=== PATIENT | male | born 1960 | race Caucasian/White ===

== ENCOUNTER 2019-11-06 03:59 | Observation (INO) | payer BC, MEDICARE ==
--- NOTE | 2019-11-06 04:29 | EDM.PDOC ---
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 also gives h/o [place]. pt states there is nothing wrong with him and lives with his mother who called the binding [employer] to bring him here for check-up. denies CP/SOB/CELIS. pt states he has [place] and his brain is deteriorating. pt's situation was discussed with on-call [facility] html web developer Sheldon who is aware bill fairchild had made an appointment for an interview at the pt's residence today at 10am but she cannot do that in the hospital. mental health contacted will come to [facility] - Related Data Allergies Allergy/AdvReac Type Severity Reaction Status Date / Time No Known Allergies Allergy Verified 06/14/19 07:39 Home Meds: Home Meds Dexlansoprazole [Dexilant] 30 mg PO DAILY 06/14/19 [History] Megestrol Acetate 5 ml PO DAILY 06/14/19 [History] Mirtazapine 45 mg PO BEDTIME 06/14/19 [History] QUEtiapine Fumarate [Quetiapine Fumarate] 75 mg PO BEDTIME 06/14/19 [History] clonazePAM [Clonazepam] 1 mg PO DAILY PRN 06/14/19 [History] ARIPiprazole [Aripiprazole] 2 tab PO DAILY 11/06/19 [History] Past Medical History HEENT History: Reports: Impaired Vision, Other (See Below) Other HEENT History: WEARS CORRECTIVE LENS Cardiovascular History: Reports: None Respiratory History: Reports: None Gastrointestinal History: Reports: GERD Genitourinary History: Reports: None Musculoskeletal History: Reports: None Neurological History: Reports: Other (See Below) Other Neuro History: HUNINGTON DISEASE Psychiatric History: Reports: None Endocrine/Metabolic History: Reports: None Hematologic History: Reports: None Immunologic History: Reports: None Oncologic (Cancer) History: Reports: None Dermatologic History: Reports: None - Infectious Disease History Infectious Disease History: Reports: None - Past Surgical History Head Surgeries/Procedures: Reports: None HEENT Surgical History: Reports: Cataract Surgery Cardiovascular Surgical History: Reports: None Respiratory Surgical History: Reports: None GI Surgical History: Reports: None Male Surgical History: Reports: Vasectomy Endocrine Surgical History: Reports: None Neurological Surgical History: Reports: None Musculoskeletal Surgical History: Reports: None Oncologic Surgical History: Reports: None Dermatological Surgical History: Reports: None Social & Family History - Caffeine Use Caffeine Use: Other Caffeine Use: ABSTAINING FROM [place] DEW ED ROS GENERAL - Review of Systems Review Of Systems: Comprehensive ROS is negative, except as noted in HPI. - Physical Exam Exam: See Below Exam Limited By: Altered Mental Status General Appearance: Alert, WD/WN, No Apparent Distress (somewhat fidgety), Anxious, Other Eye Exam: Bilateral Eye: PERRL (pupils ER @ 4mm) Ears: Hearing Grossly Normal Throat/Mouth: Normal Voice, No Airway Compromise Head Exam: Atraumatic Neck: Non-Tender, Full Range of Motion Respiratory/Chest: No Respiratory Distress Cardiovascular: Regular Rate, Rhythm GI/Abdominal: Soft, Non-Tender Neuro Exam (Abbreviated): Alert, Normal Gait, No Motor/Sensory Deficits, Other ( answers appropriately). No: Confused, Disoriented, Slow to Respond, Abnormal Gait, Sensory/Motor Deficit Psychiatric: Flat Affect Skin Exam: Warm, Dry, Normal Color Course - Vital Signs Last Recorded V/S: Last Vital Signs Temp 37.1 C 11/06/19 04:17 Pulse 120 H 11/06/19 04:17 Resp 16 11/06/19 04:17 BP 130/92 H 11/06/19 04:17 Pulse Ox 97 11/06/19 04:17 - Orders/Labs/Meds Labs: Laboratory Tests 11/06/19 11/06/19 11/06/19 Range/Units 04:15 04:15 04:15 WBC 10.2 H (5.0-10.0) 10^3/uL RBC 4.66 (4.6-6.2) 10^6/uL Hgb 14.7 (14.0-18.0) g/dL Hct 42.5 (40.0-54.0) % MCV 91.2 (80-100) fL MCH 31.5 (27.0-34.0) pg MCHC 34.6 (33.0-35.0) g/dL Plt Count 271 (150-450) 10^3/uL Neut % (Auto) 72.0 (42.2-75.2) % Lymph % (Auto) 17.7 L (20.5-50.1) % [place] % (Auto) 9.2 H (2-8) % Eos % (Auto) 0.9 L (1.0-3.0) % Baso % (Auto) 0.2 (0.0-1.0) % Sodium 141 (136-145) mmol/L Potassium 3.4 L (3.5-5.1) mmol/L Chloride 104 (98-107) mmol/L Carbon Dioxide 20 L (21-32) mmol/L Anion Gap 20.4 H (7-13) mEq/L BUN 31 H (7-18) mg/dL Creatinine 1.67 H (0.70-1.30) mg/dL Est Cr Clr Drug Dosing 48.53 mL/min Estimated GFR (MDRD) 43 BUN/Creatinine Ratio 18.6 (No establ ref range) Glucose 110 H (74-99) mg/dL Lactic Acid 1.9 (0.4-2.0) mmol/L Calcium 9.8 (8.5-10.1) mg/dL Total Bilirubin 0.8 (0.2-1.0) mg/dL AST 15 (15-37) U/L ALT 24 (16-63) U/L Alkaline Phosphatase 33 L (46-116) U/L Troponin I 0.017 (0.000-0.056) ng/mL Total Protein 7.9 (6.4-8.2) g/dL Albumin 4.8 (3.4-5.0) g/dL Globulin 3.1 Albumin/Globulin Ratio 1.5 Urine Color (YELLOW) Urine Appearance (CLEAR) Urine pH (5.0-9.0) Ur Specific [place] (1.005-1.030) Urine Protein (NEGATIVE) Urine Glucose (UA) (NEGATIVE) Urine Ketones (NEGATIVE) Urine Occult Blood (NEGATIVE) Urine Nitrite (NEGATIVE) Urine Bilirubin (NEGATIVE) Urine Urobilinogen (0.2-1.0) mg/dL Ur Leukocyte Esterase (NEGATIVE) Urine RBC /HPF Urine WBC (0-5/HPF) /HPF Ur Epithelial Cells (NOT SEEN) /HPF Urine Bacteria (0-FEW/HPF) /HPF Urine Mucus (NOT SEEN) /LPF Salicylates (2.8-20(Therapeutic)) mg/dL Urine Opiates Screen (NEGATIVE) Ur Oxycodone Screen (NEGATIVE) Urine Methadone Screen (NEGATIVE) Acetaminophen 0 L (10-30 (Therapeutic)) ug/mL Ur Barbiturates Screen (NEGATIVE) U Tricyclic Antidepress (NEGATIVE) Ur Phencyclidine Scrn (NEGATIVE) Ur Amphetamine Screen (NEGATIVE) U Methamphetamines Scrn (NEGATIVE) Urine MDMA Screen (NEGATIVE) U Benzodiazepines Scrn (NEGATIVE) Urine Cocaine Screen (NEGATIVE) U Marijuana (THC) Screen (NEGATIVE) Ethyl Alcohol < 3 (0) mg/dL 11/06/19 11/06/19 11/06/19 Range/Units 04:15 04:39 04:39 WBC (5.0-10.0) 10^3/uL RBC (4.6-6.2) 10^6/uL Hgb (14.0-18.0) g/dL Hct (40.0-54.0) % MCV (80-100) fL MCH (27.0-34.0) pg MCHC (33.0-35.0) g/dL Plt Count (150-450) 10^3/uL Neut % (Auto) (42.2-75.2) % Lymph % (Auto) (20.5-50.1) % [place] % (Auto) (2-8) % Eos % (Auto) (1.0-3.0) % Baso % (Auto) (0.0-1.0) % Sodium (136-145) mmol/L Potassium (3.5-5.1) mmol/L Chloride (98-107) mmol/L Carbon Dioxide (21-32) mmol/L Anion Gap (7-13) mEq/L BUN (7-18) mg/dL Creatinine (0.70-1.30) mg/dL Est Cr Clr Drug Dosing mL/min Estimated GFR (MDRD) BUN/Creatinine Ratio (No establ ref range) Glucose (74-99) mg/dL Lactic Acid (0.4-2.0) mmol/L Calcium (8.5-10.1) mg/dL Total Bilirubin (0.2-1.0) mg/dL AST (15-37) U/L ALT (16-63) U/L Alkaline Phosphatase (46-116) U/L Troponin I (0.000-0.056) ng/mL Total Protein (6.4-8.2) g/dL Albumin (3.4-5.0) g/dL Globulin Albumin/Globulin Ratio Urine Color Vero (YELLOW) Urine Appearance Slightly cloudy (CLEAR) Urine pH 5.5 (5.0-9.0) Ur Specific [place] >= 1.030 (1.005-1.030) Urine Protein 30 H (NEGATIVE) Urine Glucose (UA) Negative (NEGATIVE) Urine Ketones 15 H (NEGATIVE) Urine Occult Blood Negative (NEGATIVE) Urine Nitrite Negative (NEGATIVE) Urine Bilirubin Moderate H (NEGATIVE) Urine Urobilinogen 1.0 (0.2-1.0) mg/dL Ur Leukocyte Esterase Negative (NEGATIVE) Urine RBC 0-5 /HPF Urine WBC 5-10 H (0-5/HPF) /HPF Ur Epithelial Cells Moderate H (NOT SEEN) /HPF Urine Bacteria Many H (0-FEW/HPF) /HPF Urine Mucus Many H (NOT SEEN) /LPF Salicylates < 2.8 L (2.8-20(Therapeutic)) mg/dL Urine Opiates Screen Negative (NEGATIVE) Ur Oxycodone Screen Negative (NEGATIVE) Urine Methadone Screen Negative (NEGATIVE) Acetaminophen (10-30 (Therapeutic)) ug/mL Ur Barbiturates Screen Negative (NEGATIVE) U Tricyclic Antidepress Positive H (NEGATIVE) Ur Phencyclidine Scrn Negative (NEGATIVE) Ur Amphetamine Screen Negative (NEGATIVE) U Methamphetamines Scrn Negative (NEGATIVE) Urine MDMA Screen Negative (NEGATIVE) U Benzodiazepines Scrn Positive H (NEGATIVE) Urine Cocaine Screen Negative (NEGATIVE) U Marijuana (THC) Screen Negative (NEGATIVE) Ethyl Alcohol (0) mg/dL - Re-Assessments/Exams Free Text/Narrative Re-Assessment/Exam: 11/06/19 05:[address] Alvarez who kindly admitted pt to observation. Departure - Departure Time of Disposition: 06:00 Disposition: Refer to Observation Condition: Good Clinical Impression: Timo disease, Neurodegenerative cognitive impairment Altered mental state Qualifiers: Altered mental status type: unspecified Qualified Code(s): R41.82 - Altered mental status, unspecified - Discharge Information Forms: ED Department Discharge Sepsis Event Note - Evaluation Sepsis Screening Result: No Definite Risk - Focused Exam Vital Signs: Vital Signs Temp Pulse Resp BP Pulse Ox 11/06/19 04:17 37.1 C 120 H 16 130/92 H 97 Date Exam was Performed: 11/06/19 Time Exam was Performed: 05:43
[2019-11-06 04:44] LABS: ANION GAP 20.4 mEq/L (7-13); CHLORIDE,CL 104 mmol/L (98-107); SODIUM,NA 141 mmol/L (136-145)
[2019-11-06 04:46] LABS: ACETAMINOPHEN 0 ug/mL (10-30 (Therapeutic))
[2019-11-06] MEDS ORDERED: LORazepam 2 MG/ML SDV IVPUSH ONE ×2 (05:50→16:54)
[2019-11-06] MEDS ORDERED: Acetaminophen 325 MG Tab PO PRN (08:16)
[2019-11-06] MEDS ORDERED: QUEtiapine 25 MG Tab PO ONE (08:30)
[2019-11-06] MEDS: Nicotine 14 MG/24 Hr Patch TRDERM SCH (08:52)
--- NOTE | 2019-11-06 08:52 | PCM.HP ---
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 The patient has significant anxiety and depression. Has been taking Remeron and Seroquel at night. Recently Abilify was added. There is history of paranoid thoughts about having his phone hacked. He lives with his elderly mother. Due to decreasing weight, increasing behavioral problems the patient has been evaluated by hospice. Plan was home hospice care. He was brought into the emergency room after police was called by the mother that he is up and walking all-over restless. - Related Data Allergies/Adverse Reactions: Allergies Allergy/AdvReac Type Severity Reaction Status Date / Time No Known Allergies Allergy Verified 11/06/19 06:21 Home Medications: Home Meds Dexlansoprazole [Dexilant] 30 mg PO DAILY 06/14/19 [History] Megestrol Acetate 5 ml PO DAILY 06/14/19 [History] Mirtazapine 45 mg PO BEDTIME 06/14/19 [History] QUEtiapine Fumarate [Quetiapine Fumarate] 75 mg PO BEDTIME 06/14/19 [History] clonazePAM [Clonazepam] 1 mg PO DAILY PRN 06/14/19 [History] ARIPiprazole [Aripiprazole] 2 tab PO DAILY 11/06/19 [History] Past Medical History HEENT History: Reports: Impaired Vision, Other (See Below) Other HEENT History: WEARS CORRECTIVE LENS Cardiovascular History: Reports: None Respiratory History: Reports: None Gastrointestinal History: Reports: GERD Genitourinary History: Reports: None Musculoskeletal History: Reports: None Neurological History: Reports: Other (See Below) Other Neuro History: [place] DISEASE Psychiatric History: Reports: None Endocrine/Metabolic History: Reports: None Hematologic History: Reports: None Immunologic History: Reports: None Oncologic (Cancer) History: Reports: None Dermatologic History: Reports: None - Infectious Disease History Infectious Disease History: Reports: None - Past Surgical History Head Surgeries/Procedures: Reports: None HEENT Surgical History: Reports: Cataract Surgery Cardiovascular Surgical History: Reports: None Respiratory Surgical History: Reports: None GI Surgical History: Reports: None Male Surgical History: Reports: Vasectomy Endocrine Surgical History: Reports: None Neurological Surgical History: Reports: None Musculoskeletal Surgical History: Reports: None Oncologic Surgical History: Reports: None Dermatological Surgical History: Reports: None Social & Family History - Family History Family Medical History: Noncontributory - Tobacco Use Smoking Status *Q: Current Every Day Smoker Years of Tobacco use: 38 Packs/Tins Daily: 0.5 Used Tobacco, but Quit: No Second Hand Smoke Exposure: No - Caffeine Use Caffeine Use: Reports: None Other Caffeine Use: ABSTAINING FROM [place] DEW - Recreational Drug Use Recreational Drug Use: No H&P Review of Systems - Review of Systems: Review Of Systems: See Below General: Denies: Fever, Chills Pulmonary: Denies: Shortness of Breath Cardiovascular: Denies: Chest Pain, Edema Gastrointestinal: Denies: Nausea Psychiatric: Reports: Anxiety, Agitation. Denies: Confusion Neurological: Denies: Seizure Exam - Exam Exam: See Below - Vital Signs Vital Signs: Last Vital Signs Temp 98.5 F 11/06/19 06:18 Pulse 86 11/06/19 06:18 Resp 16 11/06/19 06:18 BP 129/94 H 11/06/19 06:18 Pulse Ox 100 11/06/19 06:18 Weight: 146 lb 4.8 oz - Exam Quality Assessment: Supplemental Oxygen General: Alert, Oriented Lungs: Clear to Auscultation, Normal Respiratory Effort Cardiovascular: Regular Rate, Regular Rhythm Extremities: No Pedal Edema Skin: Warm, Dry Neuro Extensive - Mental Status: Alert, Oriented x3 Psychiatric: Anxious, Agitated. No: Hallucinations - Patient Data Lab Results Last 24 hrs: Laboratory Results - last 24 hr 11/06/19 11/06/19 11/06/19 Range/Units 04:15 04:15 04:15 WBC 10.2 H (5.0-10.0) 10^3/uL RBC 4.66 (4.6-6.2) 10^6/uL Hgb 14.7 (14.0-18.0) g/dL Hct 42.5 (40.0-54.0) % MCV 91.2 (80-100) fL MCH 31.5 (27.0-34.0) pg MCHC 34.6 (33.0-35.0) g/dL Plt Count 271 (150-450) 10^3/uL Neut % (Auto) 72.0 (42.2-75.2) % Lymph % (Auto) 17.7 L (20.5-50.1) % [place] % (Auto) 9.2 H (2-8) % Eos % (Auto) 0.9 L (1.0-3.0) % Baso % (Auto) 0.2 (0.0-1.0) % Sodium 141 (136-145) mmol/L Potassium 3.4 L (3.5-5.1) mmol/L Chloride 104 (98-107) mmol/L Carbon Dioxide 20 L (21-32) mmol/L Anion Gap 20.4 H (7-13) mEq/L BUN 31 H (7-18) mg/dL Creatinine 1.67 H (0.70-1.30) mg/dL Est Cr Clr Drug Dosing 48.53 mL/min Estimated GFR (MDRD) 43 BUN/Creatinine Ratio 18.6 (No establ ref range) Glucose 110 H (74-99) mg/dL Lactic Acid 1.9 (0.4-2.0) mmol/L Calcium 9.8 (8.5-10.1) mg/dL Total Bilirubin 0.8 (0.2-1.0) mg/dL AST 15 (15-37) U/L ALT 24 (16-63) U/L Alkaline Phosphatase 33 L (46-116) U/L Troponin I 0.017 (0.000-0.056) ng/mL Total Protein 7.9 (6.4-8.2) g/dL Albumin 4.8 (3.4-5.0) g/dL Globulin 3.1 Albumin/Globulin Ratio 1.5 Urine Color (YELLOW) Urine Appearance (CLEAR) Urine pH (5.0-9.0) Ur Specific [place] (1.005-1.030) Urine Protein (NEGATIVE) Urine Glucose (UA) (NEGATIVE) Urine Ketones (NEGATIVE) Urine Occult Blood (NEGATIVE) Urine Nitrite (NEGATIVE) Urine Bilirubin (NEGATIVE) Urine Urobilinogen (0.2-1.0) mg/dL Ur Leukocyte Esterase (NEGATIVE) Urine RBC /HPF Urine WBC (0-5/HPF) /HPF Ur Epithelial Cells (NOT SEEN) /HPF Urine Bacteria (0-FEW/HPF) /HPF Urine Mucus (NOT SEEN) /LPF Salicylates (2.8-20(Therapeutic)) mg/dL Urine Opiates Screen (NEGATIVE) Ur Oxycodone Screen (NEGATIVE) Urine Methadone Screen (NEGATIVE) Acetaminophen 0 L (10-30 (Therapeutic)) ug/mL Ur Barbiturates Screen (NEGATIVE) U Tricyclic Antidepress (NEGATIVE) Ur Phencyclidine Scrn (NEGATIVE) Ur Amphetamine Screen (NEGATIVE) U Methamphetamines Scrn (NEGATIVE) Urine MDMA Screen (NEGATIVE) U Benzodiazepines Scrn (NEGATIVE) Urine Cocaine Screen (NEGATIVE) U Marijuana (THC) Screen (NEGATIVE) Ethyl Alcohol < 3 (0) mg/dL 11/06/19 11/06/19 11/06/19 Range/Units 04:15 04:39 04:39 WBC (5.0-10.0) 10^3/uL RBC (4.6-6.2) 10^6/uL Hgb (14.0-18.0) g/dL Hct (40.0-54.0) % MCV (80-100) fL MCH (27.0-34.0) pg MCHC (33.0-35.0) g/dL Plt Count (150-450) 10^3/uL Neut % (Auto) (42.2-75.2) % Lymph % (Auto) (20.5-50.1) % [place] % (Auto) (2-8) % Eos % (Auto) (1.0-3.0) % Baso % (Auto) (0.0-1.0) % Sodium (136-145) mmol/L Potassium (3.5-5.1) mmol/L Chloride (98-107) mmol/L Carbon Dioxide (21-32) mmol/L Anion Gap (7-13) mEq/L BUN (7-18) mg/dL Creatinine (0.70-1.30) mg/dL Est Cr Clr Drug Dosing mL/min Estimated GFR (MDRD) BUN/Creatinine Ratio (No establ ref range) Glucose (74-99) mg/dL Lactic Acid (0.4-2.0) mmol/L Calcium (8.5-10.1) mg/dL Total Bilirubin (0.2-1.0) mg/dL AST (15-37) U/L ALT (16-63) U/L Alkaline Phosphatase (46-116) U/L Troponin I (0.000-0.056) ng/mL Total Protein (6.4-8.2) g/dL Albumin (3.4-5.0) g/dL Globulin Albumin/Globulin Ratio Urine Color Vero (YELLOW) Urine Appearance Slightly cloudy (CLEAR) Urine pH 5.5 (5.0-9.0) Ur Specific [place] >= 1.030 (1.005-1.030) Urine Protein 30 H (NEGATIVE) Urine Glucose (UA) Negative (NEGATIVE) Urine Ketones 15 H (NEGATIVE) Urine Occult Blood Negative (NEGATIVE) Urine Nitrite Negative (NEGATIVE) Urine Bilirubin Moderate H (NEGATIVE) Urine Urobilinogen 1.0 (0.2-1.0) mg/dL Ur Leukocyte Esterase Negative (NEGATIVE) Urine RBC 0-5 /HPF Urine WBC 5-10 H (0-5/HPF) /HPF Ur Epithelial Cells Moderate H (NOT SEEN) /HPF Urine Bacteria Many H (0-FEW/HPF) /HPF Urine Mucus Many H (NOT SEEN) /LPF Salicylates < 2.8 L (2.8-20(Therapeutic)) mg/dL Urine Opiates Screen Negative (NEGATIVE) Ur Oxycodone Screen Negative (NEGATIVE) Urine Methadone Screen Negative (NEGATIVE) Acetaminophen (10-30 (Therapeutic)) ug/mL Ur Barbiturates Screen Negative (NEGATIVE) U Tricyclic Antidepress Positive H (NEGATIVE) Ur Phencyclidine Scrn Negative (NEGATIVE) Ur Amphetamine Screen Negative (NEGATIVE) U Methamphetamines Scrn Negative (NEGATIVE) Urine MDMA Screen Negative (NEGATIVE) U Benzodiazepines Scrn Positive H (NEGATIVE) Urine Cocaine Screen Negative (NEGATIVE) U Marijuana (THC) Screen Negative (NEGATIVE) Ethyl Alcohol (0) mg/dL Result Diagrams: 11/06/19 04:15 11/06/19 04:15 - Problem List (1) GERD (gastroesophageal reflux disease) SNOMED Code(s): 693368428 ICD Code: K21.9 - GASTRO-ESOPHAGEAL REFLUX DISEASE WITHOUT ESOPHAGITIS Status: Acute Current Visit: Yes (2) Agitation SNOMED Code(s): 826636380 ICD Code: R45.1 - RESTLESSNESS AND AGITATION Status: Acute Current Visit : Yes Problem List Initiated/Reviewed/Updated: Yes Orders Last 24hrs: Active Orders 24 hr Category Date Time Status Admission Diagnosis [ADT] Stat ADT 11/06/19 06:03 Ordered Admission Status [Patient Status] [ADT] Routine ADT 11/06/19 06:03 Active Oxygen Therapy [RC] PRN Care 11/06/19 08:16 Ordered Peripheral IV Care [RC] . DIRECTED Care 11/06/19 08:17 Ordered Up With Assistance [RC] ASDIRECTED Care 11/06/19 08:16 Ordered VTE/DVT Education [RC] PER UNIT ROUTINE Care 11/06/19 08:16 Ordered Vital Signs [RC] Q4H Care 11/06/19 08:16 Ordered Regular Diet [DIET] Diet 11/06/19 Lunch Ordered ARIPiprazole Med 11/06/19 09:00 Ordered 2 mg PO DAILY Acetaminophen [Tylenol] Med 11/06/19 08:16 Ordered 650 mg PO Q4H PRN Dexlansoprazole [Dexilant] Med 11/06/19 09:00 Ordered 60 mg PO BID Famotidine [Pepcid] Med 11/06/19 09:00 Ordered 20 mg PO DAILY Heparin Sodium Med 11/06/19 14:00 Ordered 5,000 units SUBCUT Q8HR LORazepam [Ativan] Med 11/06/19 08:12 Ordered 1 mg IVPUSH Q4H PRN Megestrol Acetate [Megestrol Acetate] Med 11/06/19 09:00 Ordered 5 ml PO DAILY Nicotine [Habitrol] Med 11/06/19 09:00 Ordered 14 mg TRDERM DAILY QUEtiapine Fumarate Med 11/06/19 21:00 Ordered 75 mg PO BEDTIME Sodium Chloride 0.9% [Saline Flush] Med 11/06/19 08:16 Ordered 10 ml FLUSH ASDIRECTED PRN clonazePAM [Clonazepam] Med 11/06/19 08:11 Ordered 1 mg PO Q8H PRN Peripheral IV Insertion Adult [OM.PC] Routine Oth 11/06/19 08:16 Ordered Saline Lock Insert [OM.PC] Routine Oth 11/06/19 08:16 Ordered Resuscitation Status Routine Resus Stat 11/06/19 08:16 Ordered Medication Orders Acetaminophen (Tylenol) 650 mg PO Q4H PRN PRN Reason: Pain (Mild 1-3)/fever Clonazepam (Klonopin) 1 mg PO Q8H PRN PRN Reason: anxiety Famotidine (Pepcid) 20 mg PO DAILY NISH Heparin Sodium (Porcine) (Heparin Sodium) 5,000 units SUBCUT Q8HR NISH Lorazepam (Ativan) 1 mg IVPUSH Q4H PRN PRN Reason: Agitation Nicotine (Habitrol) 14 mg TRDERM DAILY [facility] Non-Formulary Medication (Megestrol Acetate [Megestrol Acetate]) 5 ml PO DAILY NISH Aripiprazole 2 Mg (Own Med) 2 mg PO DAILY [facility] Non-Formulary Medication (Dexlansoprazole [Dexilant]) 60 mg PO BID NISH Quetiapine Fumarate (Seroquel) 75 mg PO BEDTIME NISH Sodium Chloride (Saline Flush) 10 ml FLUSH ASDIRECTED PRN PRN Reason: Keep Vein Open Assessment/Plan Comment:: Agitation, anxiety, hyperactivity give one dose of Seroquel now Continue evening Seroquel, mirtazapine Will use when necessary clonazepam po, IV Ativan d/w behavioral health - if continues to be agitated with above tx. consider psychiatric hospitallization History of Huntingtons disease History of memory loss Plan was home care and hospice evaluation Abnormal UA appears contaminant Mild hypokalemia We will replace Gastro-esophageal reflux disease Treat with famotidine, dexlansoprazole DVT prophylaxis with subcutaneous heparin
[2019-11-06] MEDS: DEXLANSOPRAZOLE 60 MG PO SCH (08:53)
[2019-11-06] MEDS ORDERED: ARIPIPRAZOLE PO SCH (09:00)
[2019-11-06] MEDS ORDERED: ARIPIPRAZOLE 2 MG PO SCH (09:00)
[2019-11-06] MEDS ORDERED: DEXLANSOPRAZOLE 30 MG PO SCH (09:00)
[2019-11-06] MEDS ORDERED: Famotidine 20 MG Tab PO SCH (09:00)
[2019-11-06] MEDS ORDERED: Potassium Chloride 10 MEQ Tab.ER PO ONE (09:04)
[2019-11-06] MEDS: LORazepam 2 MG/ML SDV IVPUSH PRN ×3 (09:40→20:19)
[2019-11-06] MEDS: ClonazePAM 0.5 MG Tab PO PRN ×2 (09:40→17:21)
[2019-11-06] MEDS: Sodium Chloride 0.9% 10 ML Syringe FLUSH PRN (09:41)
[2019-11-06] MEDS: Heparin Sodium 5,000 Units/ML Vial SUBCUT SCH ×2 (14:28→22:52)
[2019-11-06] MEDS: QUEtiapine 25 MG Tab PO PRN ×2 (14:28→22:53)
[2019-11-06] MEDS ORDERED: diphenhydrAMINE 50 MG/ML SDV IVPUSH ONE ×2 (17:15→18:25)
[2019-11-06] MEDS ORDERED: Haloperidol Lactate 5 MG/ML SDV IM ONE ×2 (18:07→18:21)
[2019-11-06] MEDS: Divalproex Sodium Delayed-Release 125 MG Cap.Sprink PO SCH (18:38)
[2019-11-06] MEDS: QUEtiapine 25 MG Tab PO SCH (20:24)
[2019-11-06] MEDS: Mirtazapine 15 MG Tab PO SCH (20:24)
[2019-11-07] MEDS: LORazepam 2 MG/ML SDV IVPUSH PRN ×6 (00:17→23:47)
[2019-11-07] MEDS: Heparin Sodium 5,000 Units/ML Vial SUBCUT SCH ×4 (05:36→22:00)
[2019-11-07] MEDS: Famotidine 20 MG Tab PO SCH (07:31)
[2019-11-07] MEDS: Divalproex Sodium Delayed-Release 125 MG Cap.Sprink PO SCH ×3 (07:32→17:30)
[2019-11-07] MEDS ORDERED: Divalproex Sodium Delayed-Release 125 MG Cap.Sprink PO SCH (08:00)
[2019-11-07] MEDS: Sodium Chloride 0.9% 10 ML Syringe FLUSH PRN ×3 (09:14→19:22)
[2019-11-07] MEDS: Nicotine 14 MG/24 Hr Patch TRDERM SCH (10:27)
[2019-11-07] MEDS: ClonazePAM 0.5 MG Tab PO PRN ×2 (11:13→22:41)
[2019-11-07] MEDS: DEXLANSOPRAZOLE 60 MG PO SCH ×2 (11:14→12:29)
[2019-11-07] MEDS ORDERED: QUEtiapine 25 MG Tab PO SCH (11:30)
--- NOTE | 2019-11-07 11:34 | PCM.PN ---
- General Info Date of Service: 11/07/19 Admission Dx/Problem (Free Text): Admission Diagnosis/Problem Admission Diagnosis/Problem Altered mental status Subjective Update: Admitted with the restlessness, hyperactivity, agitation. The patient required multiple doses of IM Haldol, IV Ativan, Seroquel, Benadryl for agitation, restlessness After multiple rounds of medications slept relatively well overnight. He is more Controlled this morning, no apparent pain, confused to location. No associated neurological deficit. No tremor. No chest pain, no fever. - Patient Data Vitals - Most Recent: Last Vital Signs Temp 98.5 F 11/07/19 08:00 Pulse 98 11/07/19 08:00 Resp 20 11/07/19 08:00 BP 98/61 11/07/19 08:00 Pulse Ox 99 11/07/19 08:16 Weight - Most Recent: 146 lb 4.8 oz I&O - Last 24 Hours: Intake & Output 11/06/19 11/07/19 11/07/19 22:59 06:59 14:59 Intake Total 2110 120 Balance 2110 120 Med Orders - Current: Current Medications Acetaminophen (Tylenol) 650 mg PO Q4H PRN PRN Reason: Pain (Mild 1-3)/fever Clonazepam (Klonopin) 1 mg PO Q8H PRN PRN Reason: anxiety Last Admin: 11/07/19 11:13 Dose: 1 mg Divalproex Sodium (Depakote Sprinkle) 250 mg PO TIDMEALS [facility] Last Admin: 11/07/19 07:32 Dose: 250 mg Famotidine (Pepcid) 20 mg PO DAILY@0800 [facility] Last Admin: 11/07/19 07:31 Dose: 20 mg Heparin Sodium (Porcine) (Heparin Sodium) 5,000 units SUBCUT Q8HR [facility] Last Admin: 11/07/19 06:03 Dose: 5,000 units Lorazepam (Ativan) 2 mg IVPUSH Q4H PRN PRN Reason: Agitation Last Admin: 11/07/19 09:14 Dose: 2 mg Mirtazapine (Remeron) 45 mg PO BEDTIME [facility] Last Admin: 11/06/19 20:24 Dose: 45 mg Nicotine (Habitrol) 14 mg TRDERM DAILY [facility] Last Admin: 11/07/19 10:27 Dose: Not Given Dexlansoprazole [ Dexilant] 60 MgOwn Med 60 mg PO DAILY@0800 [facility] Quetiapine Fumarate (Seroquel) 75 mg PO BEDTIME [facility] Last Admin: 11/06/19 20:24 Dose: 75 mg Quetiapine Fumarate (Seroquel) 25 mg PO TID PRN PRN Reason: agitation, anxiety Last Admin: 11/06/19 22:53 Dose: 25 mg Quetiapine Fumarate (Seroquel) 25 mg PO DAILY [facility] Sodium Chloride (Saline Flush) 10 ml FLUSH ASDIRECTED PRN PRN Reason: Keep Vein Open Last Admin: 11/07/19 09:14 Dose: 10 ml Discontinued Medications Diphenhydramine HCl (Benadryl) 50 mg IVPUSH ONETIME ONE Stop: 11/06/19 17:16 Last Admin: 11/06/19 17:19 Dose: 50 mg Diphenhydramine HCl (Benadryl) 50 mg IVPUSH ONETIME ONE Stop: 11/06/19 18:26 Last Admin: 11/06/19 18:38 Dose: 50 mg Divalproex Sodium (Depakote Sprinkle) 250 mg PO TIDMEALS [facility] Famotidine (Pepcid) 20 mg PO DAILY NISH Last Admin: 11/06/19 08:53 Dose: 20 mg Haloperidol Lactate (Haldol) 2.5 mg IM ONETIME ONE Stop: 11/06/19 18:08 Last Admin: 11/06/19 18:12 Dose: 2.5 mg Haloperidol Lactate (Haldol) 2.5 mg IM ONETIME ONE Stop: 11/06/19 18:22 Last Admin: 11/06/19 18:37 Dose: 2.5 mg Lorazepam (Ativan) 2 mg IVPUSH ONETIME ONE Stop: 11/06/19 05:51 Last Admin: 11/06/19 05:56 Dose: 2 mg Lorazepam (Ativan) 1 mg IVPUSH Q4H PRN PRN Reason: Agitation Last Admin: 11/06/19 14:28 Dose: 1 mg Lorazepam (Ativan) 2 mg IVPUSH ONETIME ONE Stop: 11/06/19 16:55 Last Admin: 11/06/19 17:00 Dose: 2 mg Non-Formulary Medication (Aripiprazole) 2 tab PO DAILY [facility] Non-Formulary Medication (Dexlansoprazole [Dexilant]) 30 mg PO DAILY [facility] Non-Formulary Medication (Megestrol Acetate [Megestrol Acetate]) 5 ml PO DAILY [facility] Aripiprazole 2 Mg (Own Med) 2 mg PO DAILY [facility] Last Admin: 11/06/19 08:52 Dose: Not Given Dexlansoprazole [ Dexilant] 60 MgOwn Med 60 mg PO DAILY [facility] Last Admin: 11/07/19 11:14 Dose: 60 mg Potassium Chloride (Klor-Con 10) 20 meq PO ONETIME ONE Stop: 11/06/19 09:05 Last Admin: 11/06/19 09:40 Dose: 20 meq Quetiapine Fumarate (Seroquel) 25 mg PO ONETIME ONE Stop: 11/06/19 08:31 Last Admin: 11/06/19 08:58 Dose: 25 mg - Exam General: Alert. No: Oriented (Not oriented to place), Sedated, Lethargic Neck: Supple Lungs: Clear to Auscultation, Normal Respiratory Effort Cardiovascular: Regular Rate, Regular Rhythm GI/Abdominal Exam: Normal Bowel Sounds, Soft, Non-Tender Extremities: No Pedal Edema Skin: Warm Neurological: No New Focal Deficit Psy/Mental Status: Alert, Anxious, Agitated (mildly ), Other (hyperactive, constantly talking) Sepsis Event Note - Evaluation Sepsis Screening Result: No Definite Risk - Focused Exam Vital Signs: Vital Signs Temp Pulse Resp BP Pulse Ox Pulse Ox 11/07/19 08:16 99 11/07/19 08:00 98.5 F 98 20 98/61 99 11/07/19 04:00 80 16 Date Exam was Performed: 11/07/19 Time Exam was Performed: 11:40 - Problem List & Annotations (1) GERD (gastroesophageal reflux disease) SNOMED Code(s): 579791680 Code(s): K21.9 - GASTRO-ESOPHAGEAL REFLUX DISEASE WITHOUT ESOPHAGITIS Status: Acute Current Visit: Yes (2) Agitation SNOMED Code(s): 448399454 Code(s): R45.1 - RESTLESSNESS AND AGITATION Status: Acute Current Visit: Yes - Problem List Review Problem List Initiated/Reviewed/Updated: Yes - My Orders Last 24 Hours: My Active Orders 11/06/19 11:21 QUEtiapine [SEROqueL] 25 mg PO TID PRN 11/06/19 14:00 Heparin Sodium 5,000 units SUBCUT Q8HR 11/06/19 18:14 Divalproex Sodium [Depakote Sprinkle] 250 mg PO TIDMEALS 11/06/19 18:15 LORazepam [Ativan] 2 mg IVPUSH Q4H PRN 11/06/19 21:00 Mirtazapine [Remeron] 45 mg PO BEDTIME QUEtiapine [SEROqueL] 75 mg PO BEDTIME 11/06/19 Lunch Regular Diet [DIET] 11/07/19 08:00 Dexlansoprazole [Dexilant] 60 mg PO DAILY@0800 Famotidine [Pepcid] 20 mg PO DAILY@0800 11/07/19 11:30 QUEtiapine [SEROqueL] 25 mg PO DAILY - Plan Plan:: Agitation, anxiety, hyperactivity called psychiatry facilities ([facility]) - no available bed d/w Dr. Blackmon in [facility] rec starting depakote, stop abilify add daily dose of Seroquel now Continue evening Seroquel, mirtazapine Will use when necessary clonazepam po, IV Ativan History of Huntingtons disease History of memory loss Plan was home care and hospice evaluation Abnormal UA appears contaminant Mild hypokalemia Replaced Gastro-esophageal reflux disease Treat with famotidine, dexlansoprazole DVT prophylaxis with subcutaneous heparin
[2019-11-07] MEDS: QUEtiapine 25 MG Tab PO SCH ×2 (13:07→20:29)
[2019-11-07] MEDS: QUEtiapine 25 MG Tab PO PRN ×2 (15:02→22:42)
[2019-11-07] MEDS: MEGESTROL ACETATE PO SCH ×2 (15:15→15:30)
[2019-11-07] MEDS: Mirtazapine 15 MG Tab PO SCH (20:29)
[2019-11-08] MEDS: LORazepam 2 MG/ML SDV IVPUSH PRN ×2 (04:26→08:20)
[2019-11-08] MEDS: Heparin Sodium 5,000 Units/ML Vial SUBCUT SCH ×3 (05:47→23:21)
[2019-11-08] MEDS: Famotidine 20 MG Tab PO SCH ×2 (08:18→09:47)
[2019-11-08] MEDS: Divalproex Sodium Delayed-Release 125 MG Cap.Sprink PO SCH ×4 (08:18→17:28)
[2019-11-08] MEDS: ClonazePAM 0.5 MG Tab PO PRN ×2 (08:19→09:47)
[2019-11-08] MEDS: QUEtiapine 25 MG Tab PO SCH ×2 (08:19→23:22)
[2019-11-08] MEDS: DEXLANSOPRAZOLE 60 MG PO SCH (08:22)
[2019-11-08] MEDS: Nicotine 14 MG/24 Hr Patch TRDERM SCH (08:30)
--- NOTE | 2019-11-08 10:20 | PCM.PN ---
- General Info Date of Service: 11/08/19 Admission Dx/Problem (Free Text): Admission Diagnosis/Problem Admission Diagnosis/Problem Altered mental status Subjective Update: Admitted with the restlessness, hyperactivity, agitation. The patient required multiple doses of IM Haldol, IV Ativan, Seroquel, Benadryl for agitation, restlessness on the first day yesterday had a better day, remained re-orientable, no significant agitation no apparent pain, oriented, has reasonable insight but some increased preoccupation with his heart burn medications No associated neurological deficit. No tremor. No chest pain, no fever. Functional Status: Reports: Tolerating Diet - Review of Systems General: Denies: Fever Pulmonary: Denies: Shortness of Breath Cardiovascular: Denies: Chest Pain, Edema Gastrointestinal: Denies: Abdominal Pain Genitourinary: Denies: Dysuria - Patient Data Vitals - Most Recent: Last Vital Signs Temp 97.9 F 11/08/19 08:22 Pulse 80 11/08/19 08:22 Resp 20 11/08/19 08:22 BP 106/79 11/08/19 08:22 Pulse Ox 99 11/08/19 08:22 Weight - Most Recent: 146 lb 4.8 oz I&O - Last 24 Hours: Intake & Output 11/07/19 11/08/19 11/08/19 22:59 06:59 14:59 Intake Total 200 200 Balance 200 200 Med Orders - Current: Current Medications Acetaminophen (Tylenol) 650 mg PO Q4H PRN PRN Reason: Pain (Mild 1-3)/fever Clonazepam (Klonopin) 1 mg PO Q8H PRN PRN Reason: anxiety Last Admin: 11/08/19 09:47 Dose: 1 mg Divalproex Sodium (Depakote Sprinkle) 250 mg PO TIDMEALS [facility] Last Admin: 11/08/19 09:46 Dose: 250 mg Famotidine (Pepcid) 20 mg PO DAILY@0800 [facility] Last Admin: 11/08/19 09:47 Dose: 20 mg Heparin Sodium (Porcine) (Heparin Sodium) 5,000 units SUBCUT Q8HR [facility] Last Admin: 11/08/19 05:47 Dose: Not Given Lorazepam (Ativan) 2 mg IVPUSH Q4H PRN PRN Reason: Agitation Last Admin: 11/08/19 04:26 Dose: 2 mg Mirtazapine (Remeron) 45 mg PO BEDTIME [facility] Last Admin: 11/07/19 20:29 Dose: 45 mg Miscellaneous Information (Check Patch) 1 ea TRDERM BEDTIME [facility] Nicotine (Habitrol) 14 mg TRDERM DAILY [facility] Last Admin: 11/08/19 08:30 Dose: Not Given Dexlansoprazole [ Dexilant] 60 MgOwn Med 60 mg PO DAILY@0800 [facility] Last Admin: 11/08/19 08:22 Dose: 60 mg Quetiapine Fumarate (Seroquel) 75 mg PO BEDTIME [facility] Last Admin: 11/07/19 20:29 Dose: 75 mg Quetiapine Fumarate (Seroquel) 25 mg PO TID PRN PRN Reason: agitation, anxiety Last Admin: 11/07/19 22:42 Dose: 25 mg Quetiapine Fumarate (Seroquel) 50 mg PO DAILY [facility] Last Admin: 11/08/19 08:19 Dose: 50 mg Sodium Chloride (Saline Flush) 10 ml FLUSH ASDIRECTED PRN PRN Reason: Keep Vein Open Last Admin: 11/07/19 19:22 Dose: 10 ml Discontinued Medications Diphenhydramine HCl (Benadryl) 50 mg IVPUSH ONETIME ONE Stop: 11/06/19 17:16 Last Admin: 11/06/19 17:19 Dose: 50 mg Diphenhydramine HCl (Benadryl) 50 mg IVPUSH ONETIME ONE Stop: 11/06/19 18:26 Last Admin: 11/06/19 18:38 Dose: 50 mg Divalproex Sodium (Depakote Sprinkle) 250 mg PO TIDMEALS [facility] Last Admin: 11/07/19 17:16 Dose: 250 mg Famotidine (Pepcid) 20 mg PO DAILY [facility] Last Admin: 11/06/19 08:53 Dose: 20 mg Haloperidol Lactate (Haldol) 2.5 mg IM ONETIME ONE Stop: 11/06/19 18:08 Last Admin: 11/06/19 18:12 Dose: 2.5 mg Haloperidol Lactate (Haldol) 2.5 mg IM ONETIME ONE Stop: 11/06/19 18:22 Last Admin: 11/06/19 18:37 Dose: 2.5 mg Lorazepam (Ativan) 2 mg IVPUSH ONETIME ONE Stop: 11/06/19 05:51 Last Admin: 11/06/19 05:56 Dose: 2 mg Lorazepam (Ativan) 1 mg IVPUSH Q4H PRN PRN Reason: Agitation Last Admin: 11/06/19 14:28 Dose: 1 mg Lorazepam (Ativan) 2 mg IVPUSH ONETIME ONE Stop: 11/06/19 16:55 Last Admin: 11/06/19 17:00 Dose: 2 mg Non-Formulary Medication (Aripiprazole) 2 tab PO DAILY [facility] Non-Formulary Medication (Dexlansoprazole [Dexilant]) 30 mg PO DAILY [facility] Non-Formulary Medication (Megestrol Acetate [Megestrol Acetate]) 5 ml PO DAILY [facility] Last Admin: 11/07/19 15:30 Dose: Not Given Aripiprazole 2 Mg (Own Med) 2 mg PO DAILY [facility] Last Admin: 11/06/19 08:52 Dose: Not Given Dexlansoprazole [ Dexilant] 60 MgOwn Med 60 mg PO DAILY [facility] Last Admin: 11/07/19 11:14 Dose: 60 mg Potassium Chloride (Klor-Con 10) 20 meq PO ONETIME ONE Stop: 11/06/19 09:05 Last Admin: 11/06/19 09:40 Dose: 20 meq Quetiapine Fumarate (Seroquel) 25 mg PO ONETIME ONE Stop: 11/06/19 08:31 Last Admin: 11/06/19 08:58 Dose: 25 mg Quetiapine Fumarate (Seroquel) 25 mg PO DAILY [facility] Last Admin: 11/07/19 15:15 Dose: Not Given - Exam General: Alert, Oriented Neck: Supple Lungs: Clear to Auscultation, Normal Respiratory Effort Cardiovascular: Regular Rate, Regular Rhythm GI/Abdominal Exam: Normal Bowel Sounds, Soft, Non-Tender Extremities: No Pedal Edema Skin: Warm Neurological: No New Focal Deficit Psy/Mental Status: Alert. No: Anxious, Agitated Sepsis Event Note - Evaluation Sepsis Screening Result: No Definite Risk - Focused Exam Vital Signs: Vital Signs Temp Pulse Resp BP Pulse Ox 11/08/19 08:22 97.9 F 80 20 106/79 99 11/08/19 04:00 98.8 F 90 18 99/68 98 Date Exam was Performed: 11/08/19 Time Exam was Performed: 10:16 - Problem List & Annotations (1) GERD (gastroesophageal reflux disease) SNOMED Code(s): 958752331 Code(s): K21.9 - GASTRO-ESOPHAGEAL REFLUX DISEASE WITHOUT ESOPHAGITIS Status: Acute Current Visit: Yes (2) Agitation SNOMED Code(s): 535634597 Code(s): R45.1 - RESTLESSNESS AND AGITATION Status: Acute Current Visit: Yes - Problem List Review Problem List Initiated/Reviewed/Updated: Yes - My Orders Last 24 Hours: My Active Orders 11/07/19 11:45 QUEtiapine [SEROqueL] 50 mg PO DAILY 11/08/19 21:00 Check Patch 1 ea TRDERM BEDTIME 11/09/19 05:15 BASIC METABOLIC PANEL,BMP [CHEM] AM CBC WITH AUTO DIFF [HEME] AM - Plan Plan:: Agitation, anxiety, hyperactivity seems improved started depakote, stop abilify added daily dose of Seroquel now Continue evening Seroquel, mirtazapine Will use when necessary clonazepam po, IV Ativan History of Huntingtons disease History of memory loss Plan was home care and hospice evaluation will likely benefit from increased nursing care and supervision that family can not provide will evaluate for NH Abnormal UA appears contaminant Mild hypokalemia Replaced recheck in AM Gastro-esophageal reflux disease Treat with famotidine, dexlansoprazole DVT prophylaxis with subcutaneous heparin
[2019-11-08] MEDS ORDERED: LORazepam 2 MG/ML SDV IM PRN (10:26)
[2019-11-08] MEDS ORDERED: Calcium Carbonate 500 MG Tab.Chew PO PRN (21:49)
[2019-11-08] MEDS ORDERED: Famotidine 20 MG Tab PO ONE (23:19)
[2019-11-08] MEDS: Mirtazapine 15 MG Tab PO SCH (23:21)
[2019-11-09] MEDS: Heparin Sodium 5,000 Units/ML Vial SUBCUT SCH (05:44)
[2019-11-09 06:52] LABS: ANION GAP 15.6 mEq/L (7-13)
[2019-11-09] MEDS: DEXLANSOPRAZOLE 60 MG PO SCH (09:03)
[2019-11-09] MEDS: Famotidine 20 MG Tab PO SCH (09:04)
[2019-11-09] MEDS: Nicotine 14 MG/24 Hr Patch TRDERM SCH (09:05)
[2019-11-09] MEDS: Divalproex Sodium Delayed-Release 125 MG Cap.Sprink PO SCH (09:05)
[2019-11-09] MEDS: QUEtiapine 25 MG Tab PO SCH (09:06)
--- NOTE | 2019-11-09 09:10 | PCM.DCSUM1 ---
Discharge Summary - Hospital Course Free Text/Narrative:: History of [place] disease History of mild dementia, anxiety, paranoia Presented with restlessness Agitation, anxiety, hyperactivity seems improved started depakote, stopped abilify added daily dose of Seroquel now Continue evening Seroquel, mirtazapine Will use when necessary clonazepam po History of Huntingtons disease History of memory loss Plan was home care and hospice evaluation might need increased nursing care and supervision that family can not provide - consider NH Abnormal UA appears contaminant Mild hypokalemia Replaced Gastro-esophageal reflux disease Treat with famotidine, dexlansoprazole - Discharge Data Discharge Date: 11/09/19 Discharge Disposition: DC/Tfer to Acute Hospital 02 Condition: Stable - Referral to Home Health Primary Care Physician: Thania Mix MD - Discharge Diagnosis/Problem(s) (1) GERD (gastroesophageal reflux disease) SNOMED Code(s): 920747855 ICD Code: K21.9 - GASTRO-ESOPHAGEAL REFLUX DISEASE WITHOUT ESOPHAGITIS Status: Acute Current Visit: Yes (2) Agitation SNOMED Code(s): 247159280 ICD Code: R45.1 - RESTLESSNESS AND AGITATION Status: Acute Current Visit : Yes - Patient Instructions Diet: Heart Healthy Diet Activity: As Tolerated - Discharge Plan *PRESCRIPTION DRUG MONITORING PROGRAM REVIEWED*: Not Applicable *COPY OF PRESCRIPTION DRUG MONITORING REPORT IN PATIENT FILOMENA: Not Applicable Home Medications: Home Meds Dexlansoprazole [Dexilant] 30 mg PO DAILY 06/14/19 [History] Megestrol Acetate 5 ml PO DAILY 06/14/19 [History] Mirtazapine 45 mg PO BEDTIME 06/14/19 [History] QUEtiapine Fumarate [Quetiapine Fumarate] 75 mg PO BEDTIME 06/14/19 [History] ClonazePAM [KlonoPIN] 1 mg PO Q8H PRN tablet 11/09/19 [Rx] Divalproex Sodium [Depakote Sprinkle] 250 mg PO TIDMEALS cap.sprink 11/09/19 [ Rx] Famotidine [Pepcid] 20 mg PO DAILY@0800 tablet 11/09/19 [Rx] Nicotine [Habitrol] 14 mg TRDERM DAILY patch 11/09/19 [Rx] QUEtiapine [SEROquel] 50 mg PO DAILY tablet 11/09/19 [Rx] Forms: ED Department Discharge Referrals: Thania Mix MD [Primary Care Provider] - - Discharge Summary/Plan Comment DC Time >30 min.: Yes (calling [facility], arranging transfer d/w Dr. Pillai) - General Info Date of Service: 11/09/19 Subjective Update: Admitted with the restlessness, hyperactivity, agitation. The patient required multiple doses of IM Haldol, IV Ativan, Seroquel, Benadryl for agitation, restlessness on the first day yesterday had a good day but was again agitated last night requiring IM ativan no apparent pain, oriented, has reasonable insight but increased preoccupation with his heart burn medications - Review of Systems General: Denies: Fever Pulmonary: Denies: Shortness of Breath Cardiovascular: Denies: Chest Pain Gastrointestinal: Denies: Abdominal Pain Neurological: Reports: Confusion Psychiatric: Reports: Anxiety - Patient Data Vitals - Most Recent: Last Vital Signs Temp 98.7 F 11/09/19 08:00 Pulse 72 11/09/19 08:00 Resp 20 11/09/19 08:00 BP 107/76 11/09/19 08:00 Pulse Ox 98 11/09/19 08:00 Weight - Most Recent: 146 lb 4.8 oz I&O - Last 24 hours: Intake & Output 11/08/19 11/09/19 11/09/19 22:59 06:59 14:59 Intake Total 120 Balance 120 Lab Results - Last 24 hrs: Laboratory Results - last 24 hr 11/09/19 11/09/19 Range/Units 06:00 06:00 WBC 4.1 L (5.0-10.0) 10^3/uL RBC 4.27 L (4.6-6.2) 10^6/uL Hgb 13.5 L (14.0-18.0) g/dL Hct 38.8 L (40.0-54.0) % MCV 90.9 (80-100) fL MCH 31.6 (27.0-34.0) pg MCHC 34.8 (33.0-35.0) g/dL Plt Count 196 D (150-450) 10^3/uL Neut % (Auto) 55.9 (42.2-75.2) % Lymph % (Auto) 33.4 (20.5-50.1) % [place] % (Auto) 7.3 (2-8) % Eos % (Auto) 3.2 H (1.0-3.0) % Baso % (Auto) 0.2 (0.0-1.0) % Sodium 141 (136-145) mmol/L Potassium 3.6 (3.5-5.1) mmol/L Chloride 105 (98-107) mmol/L Carbon Dioxide 24 (21-32) mmol/L Anion Gap 15.6 H (7-13) mEq/L BUN 13 (7-18) mg/dL Creatinine 1.27 (0.70-1.30) mg/dL Est Cr Clr Drug Dosing 60.24 mL/min Estimated GFR (MDRD) 58 Glucose 78 (74-99) mg/dL Calcium 8.8 (8.5-10.1) mg/dL Med Orders - Current: Current Medications Acetaminophen (Tylenol) 650 mg PO Q4H PRN PRN Reason: Pain (Mild 1-3)/fever Calcium Carbonate/Glycine (Tums) 500 mg PO Q4H PRN PRN Reason: Heartburn Last Admin: 11/08/19 22:04 Dose: 500 mg Clonazepam (Klonopin) 1 mg PO Q8H PRN PRN Reason: anxiety Last Admin: 11/08/19 09:47 Dose: 1 mg Divalproex Sodium (Depakote Sprinkle) 250 mg PO TIDMEALS [facility] Last Admin: 11/08/19 17:28 Dose: 250 mg Famotidine (Pepcid) 20 mg PO DAILY@0800 [facility] Last Admin: 11/08/19 09:47 Dose: 20 mg Heparin Sodium (Porcine) (Heparin Sodium) 5,000 units SUBCUT Q8HR [facility] Last Admin: 11/09/19 05:44 Dose: Not Given Lorazepam (Ativan) 2 mg IVPUSH Q4H PRN PRN Reason: Agitation Last Admin: 11/08/19 04:26 Dose: 2 mg Lorazepam (Ativan) 2 mg IM Q4H PRN PRN Reason: Agitation Last Admin: 11/08/19 19:37 Dose: 2 mg Mirtazapine (Remeron) 45 mg PO BEDTIME [facility] Last Admin: 11/08/19 23:21 Dose: Not Given Miscellaneous Information (Check Patch) 1 ea TRDERM BEDTIME [facility] Last Admin: 11/08/19 23:21 Dose: Not Given Nicotine (Habitrol) 14 mg TRDERM DAILY [facility] Last Admin: 11/08/19 08:30 Dose: Not Given Dexlansoprazole [ Dexilant] 60 MgOwn Med 60 mg PO DAILY@0800 [facility] Last Admin: 11/08/19 08:22 Dose: 60 mg Quetiapine Fumarate (Seroquel) 75 mg PO BEDTIME [facility] Last Admin: 11/08/19 23:22 Dose: Not Given Quetiapine Fumarate (Seroquel) 25 mg PO TID PRN PRN Reason: agitation, anxiety Last Admin: 11/07/19 22:42 Dose: 25 mg Quetiapine Fumarate (Seroquel) 50 mg PO DAILY [facility] Last Admin: 11/08/19 08:19 Dose: 50 mg Sodium Chloride (Saline Flush) 10 ml FLUSH ASDIRECTED PRN PRN Reason: Keep Vein Open Last Admin: 11/07/19 19:22 Dose: 10 ml Discontinued Medications Diphenhydramine HCl (Benadryl) 50 mg IVPUSH ONETIME ONE Stop: 11/06/19 17:16 Last Admin: 11/06/19 17:19 Dose: 50 mg Diphenhydramine HCl (Benadryl) 50 mg IVPUSH ONETIME ONE Stop: 11/06/19 18:26 Last Admin: 11/06/19 18:38 Dose: 50 mg Divalproex Sodium (Depakote Sprinkle) 250 mg PO TIDMEALS [facility] Last Admin: 11/07/19 17:16 Dose: 250 mg Famotidine (Pepcid) 20 mg PO DAILY [facility] Last Admin: 11/06/19 08:53 Dose: 20 mg Famotidine (Pepcid) 20 mg PO ONETIME ONE Stop: 11/08/19 23:20 Last Admin: 11/09/19 04:26 Dose: Not Given Haloperidol Lactate (Haldol) 2.5 mg IM ONETIME ONE Stop: 11/06/19 18:08 Last Admin: 11/06/19 18:12 Dose: 2.5 mg Haloperidol Lactate (Haldol) 2.5 mg IM ONETIME ONE Stop: 11/06/19 18:22 Last Admin: 11/06/19 18:37 Dose: 2.5 mg Lorazepam (Ativan) 2 mg IVPUSH ONETIME ONE Stop: 11/06/19 05:51 Last Admin: 11/06/19 05:56 Dose: 2 mg Lorazepam (Ativan) 1 mg IVPUSH Q4H PRN PRN Reason: Agitation Last Admin: 11/06/19 14:28 Dose: 1 mg Lorazepam (Ativan) 2 mg IVPUSH ONETIME ONE Stop: 11/06/19 16:55 Last Admin: 11/06/19 17:00 Dose: 2 mg Non-Formulary Medication (Aripiprazole) 2 tab PO DAILY [facility] Non-Formulary Medication (Dexlansoprazole [Dexilant]) 30 mg PO DAILY [facility] Non-Formulary Medication (Megestrol Acetate [Megestrol Acetate]) 5 ml PO DAILY [facility] Last Admin: 11/07/19 15:30 Dose: Not Given Aripiprazole 2 Mg (Own Med) 2 mg PO DAILY [facility] Last Admin: 11/06/19 08:52 Dose: Not Given Dexlansoprazole [ Dexilant] 60 MgOwn Med 60 mg PO DAILY [facility] Last Admin: 11/07/19 11:14 Dose: 60 mg Potassium Chloride (Klor-Con 10) 20 meq PO ONETIME ONE Stop: 11/06/19 09:05 Last Admin: 11/06/19 09:40 Dose: 20 meq Quetiapine Fumarate (Seroquel) 25 mg PO ONETIME ONE Stop: 11/06/19 08:31 Last Admin: 11/06/19 08:58 Dose: 25 mg Quetiapine Fumarate (Seroquel) 25 mg PO DAILY [facility] Last Admin: 11/07/19 15:15 Dose: Not Given - Exam Quality Assessment: Denies: Supplemental Oxygen General: Reports: Alert, Oriented Lungs: Reports: Clear to Auscultation, Normal Respiratory Effort Cardiovascular: Reports: Regular Rate, Regular Rhythm Extremities: No Pedal Edema Neurological: Reports: No New Focal Deficit Psy/Mental Status: Reports: Alert, Normal Affect, Normal Mood
== END 2019-11-09 10:10 ==
LOC: DL.ED 03:59 → DL.MS 06:03
PROVIDERS: ADMIT Internal Medicine; ATTEND Internal Medicine
DX: G10 Huntington's disease (principal); F02.81 Dementia in other diseases classified elsewhere, unspecified severity, with behavioral disturbance; F90.9 Attention-deficit hyperactivity disorder, unspecified type; K21.9 Gastro-esophageal reflux disease without esophagitis; F41.9 Anxiety disorder, unspecified; E87.6 Hypokalemia; F32.9 Major depressive disorder, single episode, unspecified; F17.210 Nicotine dependence, cigarettes, uncomplicated; R82.90 Unspecified abnormal findings in urine; Z51.5 Encounter for palliative care; Z86.59 Personal history of other mental and behavioral disorders
CPT/HCPCS: 36415; 80048; 80053; 80305-QW; 80307; 81001; 83605; 84484; 85025; 96372; 96374; 96375; 96376; 99285-25; A9270-GY; G0378; J1200; J1630; J1644; J2060

== ENCOUNTER 2020-08-29 19:47 | Emergency (ER) | payer BC, MEDICARE ==
[~2020-08-29 19:47] MED LIST: Bacitracin Oint 1 GM U/D Packet TOP ONE; Lidocaine 1% 30 ML SDV INJECT ONE
--- NOTE | 2020-08-29 20:10 | EDM.PDOC ---
ED HPI GENERAL MEDICAL PROBLEM - General Chief Complaint: Head Injury Stated Complaint: AMBULANCE Time Seen by Provider: 08/29/20 19:50 Source of Information: Reports: Patient, EMS, RN History Limitations: Reports: No Limitations - History of Present Illness INITIAL COMMENTS - FREE TEXT/NARRATIVE: ED via [facility]. Patient found lying on highway , assisted to Private vehicle. Reports slipped crossing road from [place] and couldn't get up. estimated 10 minutes. No loss of consciousness. Hx Huntingtons Disease. Reports 2 comarc and Elijah ariza, ETOH ingestion once every other month. Does not use walker or cane, Admits fall about one time per month. Sister here from [place] assisting with care. Apparently both at bar together this quirino but left few minutes apart and he was not home when she got home. Patient denies pain. - Related Data Allergies Allergy/AdvReac Type Severity Reaction Status Date / Time No Known Allergies Allergy Verified 08/29/20 19:52 Home Meds: Home Meds Dexlansoprazole [Dexilant] 30 mg PO DAILY 06/14/19 [History] Megestrol Acetate 5 ml PO DAILY 06/14/19 [History] Mirtazapine 45 mg PO BEDTIME 06/14/19 [History] QUEtiapine Fumarate [Quetiapine Fumarate] 75 mg PO BEDTIME 06/14/19 [History] ClonazePAM [KlonoPIN] 1 mg PO Q8H PRN tablet 11/09/19 [Rx] Divalproex Sodium [Depakote Sprinkle] 250 mg PO TIDMEALS cap.sprink 11/09/19 [Rx] Famotidine [Pepcid] 20 mg PO DAILY@0800 tablet 11/09/19 [Rx] Nicotine [Habitrol] 14 mg TRDERM DAILY patch 11/09/19 [Rx] QUEtiapine [SEROquel] 50 mg PO DAILY tablet 11/09/19 [Rx] Past Medical History HEENT History: Reports: Impaired Vision, Other (See Below) Other HEENT History: WEARS CORRECTIVE LENS Cardiovascular History: Reports: None Respiratory History: Reports: None Gastrointestinal History: Reports: GERD Genitourinary History: Reports: None Musculoskeletal History: Reports: None Neurological History: Reports: Other (See Below) Other Neuro History: HUN[place] DISEASE Psychiatric History: Reports: None Endocrine/Metabolic History: Reports: None Hematologic History: Reports: None Immunologic History: Reports: None Oncologic (Cancer) History: Reports: None Dermatologic History: Reports: None - Infectious Disease History Infectious Disease History: Reports: None - Past Surgical History Head Surgeries/Procedures: Reports: None HEENT Surgical History: Reports: Cataract Surgery Cardiovascular Surgical History: Reports: None Respiratory Surgical History: Reports: None GI Surgical History: Reports: None Male Surgical History: Reports: Vasectomy Endocrine Surgical History: Reports: None Neurological Surgical History: Reports: None Musculoskeletal Surgical History: Reports: None Oncologic Surgical History: Reports: None Dermatological Surgical History: Reports: None Social & Family History - Family History Family Medical History: No Pertinent Family History - Tobacco Use Tobacco Use Status *Q: Current Every Day Tobacco User Years of Tobacco use: 15 Packs/Tins Daily: 0.5 Second Hand Smoke Exposure: Yes - Caffeine Use Caffeine Use: Reports: None Other Caffeine Use: ABSTAINING FROM [place] DEW - Recreational Drug Use Recreational Drug Use: No ED ROS GENERAL - Review of Systems Review Of Systems: Comprehensive ROS is negative, except as noted in HPI. ED EXAM, HEAD INJURY - Physical Exam Exam: See Below Exam Limited By: No Limitations General Appearance: Alert, Mild Distress, Thin Head: Normocephalic, Facial Abrasions (tip of nose, superficial, above left eyebrow), Facial Lacerations (lower chin), Other (lower lip swollern). No: Scalp Lacerations, Scalp Swelling, Facial Tenderness, Raccoon Eyes Nexus Criteria: Evidence of Intoxication. No: Posterior, Midline Cervical Tenderness, Altered Level of Consciousness, Focal Neurological Deficit, Painful Distraction Injuries Eyes: Bilateral Eye: EOMI, PERRL Ears: Normal External Exam, Hearing Grossly Normal Nose: Nasal Swelling (mild no gross deformity). No: Active Bleeding Throat/Mouth: Normal Teeth, Lip Swelling (lower) Neck: Non-Tender, Normal Inspection Respiratory: No Respiratory Distress, Lungs Clear, Normal Breath Sounds Cardiovascular: Normal Peripheral Pulses, Regular Rate, Rhythm GI/Abdominal Exam: Normal Bowel Sounds, Soft Extremities: Normal Range of Motion, Other (mild redness knees thighs, improved with warm blankets, superficial bruising bilateral knees.). 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 nml As Tested, Alert, Normal Mood/Affect, Oriented x 3, Other (GCS15) Skin: Normal Color, Warm/Dry - Perdido Coma Score Best Eye Response (Aracelis): (4) Open Spontaneously Best Verbal Response (Perdido): (5) Oriented Best Motor Response (Perdido): (6) Obeys Commands ED LACERATION/WOUND & ZOLTAN PROC - Laceration/Wound Repair Face Lac/wound length in cm: 2 (lower chin) Appearance: Superficial Distal NVT: Neuro & Vascular Intact Anesthetic Type: Local Local Anesthesia - Lidocaine (Xylocaine): 1% Plain Local Anesthetic Volume: 1cc Skin Prep: Chlorhexidine (Hibiciens), Saline Closed with: Sutures Suture Size: 5-0 # of Sutures: 4 Suture Type: Nylon, Interrupted Sterile Dressing Applied: Nurse Tetanus Status Addressed: Yes Complications: No Course - Vital Signs Last Recorded V/S: Last Vital Signs Temp 96.4 F L 08/29/20 19:47 Pulse 85 08/29/20 19:47 Resp 18 08/29/20 19:47 BP 112/77 08/29/20 19:47 Pulse Ox 100 08/29/20 19:47 - Orders/Labs/Meds Labs: Laboratory Tests 08/29/20 08/29/20 Range/Units 20:10 20:10 WBC 7.6 (5.0-10.0) 10^3/uL RBC 4.99 (4.6-6.2) 10^6/uL Hgb 15.1 D (14.0-18.0) g/dL Hct 43.4 (40.0-54.0) % MCV 87.0 D (80-100) fL MCH 30.3 (27.0-34.0) pg MCHC 34.8 (33.0-35.0) g/dL Plt Count 247 (150-450) 10^3/uL Neut % (Auto) 69.8 (42.2-75.2) % Lymph % (Auto) 21.7 (20.5-50.1) % [place] % (Auto) 5.8 (2-8) % Eos % (Auto) 2.4 (1.0-3.0) % Baso % (Auto) 0.3 (0.0-1.0) % Sodium 138 (136-145) mmol/L Potassium 3.1 L (3.5-5.1) mmol/L Chloride 101 (98-107) mmol/L Carbon Dioxide 20 L (21-32) mmol/L Anion Gap 20.1 H (7-13) mEq/L BUN 21 H (7-18) mg/dL Creatinine 1.17 (0.70-1.30) mg/dL Est Cr Clr Drug Dosing 76.41 mL/min Estimated GFR (MDRD) > 60 BUN/Creatinine Ratio 17.9 (No establ ref range) Glucose 87 (74-99) mg/dL Calcium 8.8 (8.5-10.1) mg/dL Total Bilirubin 0.4 (0.2-1.0) mg/dL AST 12 L (15-37) U/L ALT 22 (16-63) U/L Alkaline Phosphatase 57 (46-116) U/L Total Protein 7.4 (6.4-8.2) g/dL Albumin 4.4 (3.4-5.0) g/dL Globulin 3.0 Albumin/Globulin Ratio 1.5 Ethyl Alcohol 265 (0) mg/dL Meds: Medications Discontinued Medications Generic Name Dose Route Start Last Admin Trade Name Amadorq PRN Reason Stop Dose Admin Bacitracin 1 dose 08/29/20 19:44 08/29/20 19:58 Bacitracin Oint 1 Gm TOP 08/29/20 19:45 1 dose ONETIME ONE Administration Lidocaine HCl 30 ml 08/29/20 19:44 08/29/20 19:58 Xylocaine-Mpf 1% INJECT 08/29/20 19:45 30 ml ONETIME ONE Administration Potassium Chloride 20 meq 08/29/20 21:03 08/29/20 21:10 Klor-Con 10 PO 08/29/20 21:04 20 meq ONETIME ONE Administration Departure - Departure Time of Disposition: 21:09 Disposition: Home, Self-Care 01 Condition: Good Clinical Impression: Hx of Timo's disease, Hypokalemia Laceration of skin of chin Qualifiers: Encounter type: initial encounter Qualified Code(s): S01.81XA - Laceration without foreign body of other part of head, initial encounter Fall Qualifiers: Encounter type: initial encounter Qualified Code(s): W19.XXXA - Unspecified fall, initial encounter Alcohol intoxication Qualifiers: Complication of substance-induced condition: uncomplicated Qualified Code(s): F10.920 - Alcohol use, unspecified with intoxication, uncomplicated Facial abrasion Qualifiers: Encounter type: initial encounter Qualified Code(s): S00.81XA - Abrasion of other part of head, initial encounter Knee contusion Qualifiers: Encounter type: initial encounter Laterality: unspecified laterality Qualified Code(s): S80.00XA - Contusion of unspecified knee, initial encounter - Discharge Information *PRESCRIPTION DRUG MONITORING PROGRAM REVIEWED*: No *COPY OF PRESCRIPTION DRUG MONITORING REPORT IN PATIENT FILOMENA: No Instructions: Alcohol Intoxication, [id number], Laceration Care, Adult, Head Injury, Adult, [id number] Referrals: Jonathan Arizmendi NP [Primary Care Provider] - Forms: ED Department Discharge Additional Instructions: avoid alcohol consider walker or cane to assist with balance tylenol for discomfort bacitracin to abrasions twice daily avoid exposure to cold recheck clinic on head injury instructions Sepsis Event Note (ED) - Evaluation Sepsis Screening Result: No Definite Risk - Focused Exam Vital Signs: Vital Signs Temp Pulse Resp BP Pulse Ox 08/29/20 19:47 96.4 F L 85 18 112/77 100
[2020-08-29 20:40] LABS: ANION GAP 20.1 mEq/L (7-13); CHLORIDE,CL 101 mmol/L (98-107); SODIUM,NA 138 mmol/L (136-145)
--- NOTE | 2020-08-29 20:53 | CT ---
PROCEDURE INFORMATION: Exam: CT Head Without Contrast Exam date and time: 08/29/2020 7:59 PM Age: 60 years old Clinical indication: Injury or trauma; Fall; Blunt trauma (contusions or hematomas); Nose; Concussion/head injury; Additional info: Unwitnessed fall TECHNIQUE: Imaging protocol: Computed tomography of the head without contrast. Radiation optimization: All CT scans at this facility use at least one of these dose optimization techniques: automated exposure control; mA and/or kV adjustment per patient size (includes targeted exams where dose is matched to clinical indication); or iterative reconstruction. COMPARISON: No relevant prior studies available. FINDINGS: Brain: Global cerebral atrophy. No intracranial hemorrhage. No mass. No large territory acute CVA. There is motion artifact degradation of image quality. Cerebral ventricles: No ventriculomegaly. Bones/joints: Unremarkable. No acute fracture. Paranasal sinuses: Chronic sinus disease within the maxillary sinuses and ethmoid sinus air cells. Left frontal sinus chronic opacification. Mastoid air cells: Visualized mastoid air cells are well aerated. Soft tissues: Unremarkable. IMPRESSION: 1. Atrophy. 2. No intracranial hemorrhage. 3. Chronic pansinusitis. 4. No skull fracture. 5. Motion artifact image quality degradation.
--- NOTE | 2020-08-29 20:56 | CT ---
PROCEDURE INFORMATION: Exam: CT Cervical Spine Without Contrast Exam date and time: 08/29/2020 7:59 PM Age: 60 years old Clinical indication: Injury or trauma; Fall; Blunt trauma (contusions or hematomas); Nose; Concussion/head injury; Additional info: Unwitnessed fall TECHNIQUE: Imaging protocol: Computed tomography images of the cervical spine without contrast. Radiation optimization: All CT scans at this facility use at least one of these dose optimization techniques: automated exposure control; mA and/or kV adjustment per patient size (includes targeted exams where dose is matched to clinical indication); or iterative reconstruction. COMPARISON: No relevant prior studies available. FINDINGS: Bones/joints: No acute fracture. Normal alignment. Moderate to severe disc space degeneration at C6-C7. Moderate degenerative disc space degeneration at C4-C5. Multilevel facet and uncovertebral joint disease greater on right than left. Discs/Spinal canal/Neural foramina: No significant disc protrusion. No severe spinal canal stenosis. No significant neural foraminal narrowing. Lungs: Mild right apical lung scarring suggested. Soft tissues: Unremarkable. IMPRESSION: 1. No cervical spine fracture or dislocation. 2. Multilevel degenerative disc and joint disease.
[2020-08-29] MEDS ORDERED: Potassium Chloride 10 MEQ Tab.ER PO ONE (21:03)
--- NOTE | 2020-08-29 21:04 | CT ---
PROCEDURE INFORMATION: Exam: CT Maxillofacial Without Contrast Exam date and time: 08/29/2020 7:59 PM Age: 60 years old Clinical indication: Injury or trauma; Fall; Blunt trauma (contusions or hematomas); Nose; Concussion/head injury; Additional info: Unwitnessed fall TECHNIQUE: Imaging protocol: Computed tomography images of the face without contrast. Radiation optimization: All CT scans at this facility use at least one of these dose optimization techniques: automated exposure control; mA and/or kV adjustment per patient size (includes targeted exams where dose is matched to clinical indication); or iterative reconstruction. COMPARISON: No relevant prior studies available. FINDINGS: Orbital cavity: Orbits and contents are unremarkable. Bones/joints: No facial fracture. Paranasal sinuses: Chronic pansinusitis changes. Bilateral maxillary sinuses, bilateral ethmoid sinus air cells, and the left aspect of the sphenoid sinus. Mucoperiosteal thickening. No air-fluid level. Soft tissues: Facial soft tissues are unremarkable. No foreign body. No hematoma. IMPRESSION: 1. No facial bone fracture. 2. Chronic pansinusitis disease. 3. No facial soft tissue hematoma or foreign body.
== END 2020-08-29 21:30 | disposition home or self-care (01) ==
LOC: DL.ED 19:47
DX: S01.81XA Laceration without foreign body of other part of head, initial encounter (principal); S80.02XA Contusion of left knee, initial encounter; S80.01XA Contusion of right knee, initial encounter; F10.120 Alcohol abuse with intoxication, uncomplicated; E87.6 Hypokalemia; G10 Huntington's disease; K21.9 Gastro-esophageal reflux disease without esophagitis; Y90.8 Blood alcohol level of 240 mg/100 ml or more; Z72.0 Tobacco use; Z79.899 Other long term (current) drug therapy; W19.XXXA Unspecified fall, initial encounter
CPT/HCPCS: 12011; 36415; 70450; 70486; 72125; 80053; 80307; 85025; 99285; A9270; 99283

== ENCOUNTER 2021-07-18 13:38 | Emergency (ER) | payer BC, MEDICARE ==
[2021-07-18 14:33] LABS: ANION GAP 13.7 mEq/L (7-13)
[2021-07-18] MEDS: Haloperidol Lactate 5 MG/ML SDV IM ONE ×3 (14:38→16:52)
[2021-07-18] MEDS: Haloperidol Lactate 5 MG/ML SDV ONE (15:02)
--- NOTE | 2021-07-18 15:09 | EDM.PDOC ---
ED HPI GENERAL MEDICAL PROBLEM - General Chief Complaint: General Stated Complaint: AMBULANCE Time Seen by Provider: 07/18/21 13:44 Source of Information: Reports: EMS, Family, Police History Limitations: Reports: Altered Mental Status - History of Present Illness INITIAL COMMENTS - FREE TEXT/NARRATIVE: This 61 yo male patient was brought to the ED by [facility] due to the patient being combative and acting out while at home. The patient has a history of [place]'s Disease. According to family, the patient took 10-12 Ativan (2 mg) at about 1100 today. The patient has been very confused for some time. The patient currently lives at home with his 90 year old mother. The patient's family has been looking for a place to move the patient for continued care due to concerns for his mother. The patient has been admitted to the [facility] for a similar episode in the past. The patient arrived with [employer] accompanying EMS. The patient was handcuffed upon arrival due to the patient being "extremely combative" when in his home. When placed on the ED bed, the patient was yelling "fuck you", "I hate the fucking product support rep", and "stick it up your ass." Onset: Gradual Duration: Week(s):, Constant, Getting Worse Location: Reports: Generalized Quality: Reports: Other Severity: Severe Improves with: Reports: None Worsens with: Reports: None Context: Reports: Other Associated Symptoms: Reports: Confusion - Related Data Allergies Allergy/AdvReac Type Severity Reaction Status Date / Time No Known Allergies Allergy Verified 08/29/20 19:52 Home Meds: Home Meds Dexlansoprazole [Dexilant] 30 mg PO DAILY 06/14/19 [History] Megestrol Acetate 5 ml PO DAILY 06/14/19 [History] Mirtazapine 45 mg PO BEDTIME 06/14/19 [History] QUEtiapine Fumarate [Quetiapine Fumarate] 75 mg PO BEDTIME 06/14/19 [History] ClonazePAM [KlonoPIN] 1 mg PO Q8H PRN tablet 11/09/19 [Rx] Divalproex Sodium [Depakote Sprinkle] 250 mg PO TIDMEALS cap.sprink 11/09/19 [Rx] Famotidine [Pepcid] 20 mg PO DAILY@0800 tablet 11/09/19 [Rx] Nicotine [Habitrol] 14 mg TRDERM DAILY patch 11/09/19 [Rx] QUEtiapine [SEROquel] 50 mg PO DAILY tablet 11/09/19 [Rx] Past Medical History HEENT History: Reports: Impaired Vision, Other (See Below) Other HEENT History: WEARS CORRECTIVE LENS Cardiovascular History: Reports: None Respiratory History: Reports: None Gastrointestinal History: Reports: GERD Genitourinary History: Reports: None Musculoskeletal History: Reports: None Neurological History: Reports: Other (See Below) Other Neuro History: HUN[place] DISEASE Psychiatric History: Reports: None Endocrine/Metabolic History: Reports: None Hematologic History: Reports: None Immunologic History: Reports: None Oncologic (Cancer) History: Reports: None Dermatologic History: Reports: None - Infectious Disease History Infectious Disease History: Reports: None - Past Surgical History Head Surgeries/Procedures: Reports: None HEENT Surgical History: Reports: Cataract Surgery Cardiovascular Surgical History: Reports: None Respiratory Surgical History: Reports: None GI Surgical History: Reports: None Male Surgical History: Reports: Vasectomy Endocrine Surgical History: Reports: None Neurological Surgical History: Reports: None Musculoskeletal Surgical History: Reports: None Oncologic Surgical History: Reports: None Dermatological Surgical History: Reports: None Social & Family History - Family History Family Medical History: No Pertinent Family History - Tobacco Use Tobacco Use Status *Q: Unknown Ever Used Tobacco - Caffeine Use Caffeine Use: Reports: None Other Caffeine Use: ABSTAINING FROM [place] DEW - Recreational Drug Use Recreational Drug Use Frequency: Patient Refuses To Answer ED ROS GENERAL - Review of Systems Review Of Systems: Comprehensive ROS is negative, except as noted in HPI. ED EXAM, GENERAL - Physical Exam Exam: See Below Exam Limited By: No Limitations General Appearance: Alert, WD/WN, No Apparent Distress Eye Exam: Bilateral Eye: EOMI, Normal Inspection, PERRL Ears: Normal External Exam Nose: Normal Inspection, Normal Mucosa, No Blood Throat/Mouth: Normal Voice, No Airway Compromise Head: Atraumatic, Normocephalic Neck: Normal Inspection, Supple, Non-Tender, Full Range of Motion Respiratory/Chest: No Respiratory Distress, Lungs Clear, Normal Breath Sounds, No Accessory Muscle Use, Chest Non-Tender Cardiovascular: Normal Peripheral Pulses, Regular Rate, Rhythm, No Edema, No Gallop, No JVD, No Murmur, No Rub GI/Abdominal: Normal Bowel Sounds, Soft, Non-Tender, No Organomegaly, No Distention, No Abnormal Bruit, No Mass (Male) Exam: Deferred Rectal (Males) Exam: Deferred Back Exam: Normal Inspection, Full Range of Motion, NT Extremities: Normal Inspection, Normal Range of Motion, Non-Tender, Normal Capillary Refill, No Pedal Edema Neurological: Inattentive, Confused, Disoriented Psychiatric: Normal Affect, Normal Mood Skin Exam: Warm, Dry, Intact, Normal Color, No Rash Lymphatic: No Adenopathy #1 Interpretation EKG Date: 07/18/21 Time: 13:58 Rhythm: NSR Rate (Beats/Min): 78 [place]: Normal P-Wave: Present QRS: Normal ST-T: Normal QT: Normal Comparison: NA - No Prior EKG Course - Vital Signs Last Recorded V/S: Last Vital Signs Temp 97.2 F 07/18/21 13:44 Pulse 88 07/18/21 13:44 Resp 20 07/18/21 13:44 BP 117/83 07/18/21 14:42 Pulse Ox 97 07/18/21 13:44 - Orders/Labs/Meds Orders: Active Orders 24 hr Category Date Time Status Initiate/Renew Violent-Self Destructive Restraints >/= Care 07/18/21 13:30 Ordered 20yo Q4H Nrsg Assess: Viol-S.Dest Rest [RC] Q1H Care 07/18/21 15:39 Active CULTURE BLOOD [BC] Stat Lab 07/18/21 13:59 Received DRUG SCREEN URINE BIORAD [URCHEM] Stat Lab 07/18/21 13:48 Ordered UA RFX CLAUDIA AND CULT IF INDIC [URIN] Urgent Lab 07/18/21 13:48 Ordered Labs: Laboratory Tests 07/18/21 07/18/21 07/18/21 Range/Units 13:59 13:59 13:59 WBC 6.6 (5.0-10.0) 10^3/uL RBC 4.73 (4.6-6.2) 10^6/uL Hgb 14.6 (14.0-18.0) g/dL Hct 43.4 (40.0-54.0) % MCV 91.8 D (80-100) fL MCH 30.9 (27.0-34.0) pg MCHC 33.6 (33.0-35.0) g/dL Plt Count 234 (150-450) 10^3/uL Neut % (Auto) 53.8 (42.2-75.2) % Lymph % (Auto) 33.9 (20.5-50.1) % [place] % (Auto) 7.5 (2-8) % Eos % (Auto) 4.5 H (1.0-3.0) % Baso % (Auto) 0.3 (0.0-1.0) % Sodium 140 (136-145) mmol/L Potassium 3.7 (3.5-5.1) mmol/L Chloride 103 (98-107) mmol/L Carbon Dioxide 27 (21-32) mmol/L Anion Gap 13.7 H (7-13) mEq/L BUN 17 (7-18) mg/dL Creatinine 1.25 (0.70-1.30) mg/dL Est Cr Clr Drug Dosing 69.40 mL/min Estimated GFR (MDRD) 59 BUN/Creatinine Ratio 13.6 (No establ ref range) Glucose 91 (70-99) mg/dL Lactic Acid 1.7 (0.4-2.0) mmol/L Calcium 8.5 (8.5-10.1) mg/dL Total Bilirubin 0.4 (0.2-1.0) mg/dL AST 12 L (15-37) U/L ALT 21 (16-63) U/L Alkaline Phosphatase 68 (46-116) U/L Troponin I High Sens 5 (<=76) pg/mL Total Protein 6.5 (6.4-8.2) g/dL Albumin 3.8 (3.4-5.0) g/dL Globulin 2.7 Albumin/Globulin Ratio 1.4 Meds: Medications Discontinued Medications Generic Name Dose Route Start Last Admin Trade Name Freq PRN Reason Stop Dose Admin Haloperidol Lactate 5 mg 07/18/21 14:15 07/18/21 14:38 Haloperidol Lactate 5 Mg/Ml Sdv IM 07/18/21 14:16 5 mg ONETIME ONE Administration Haloperidol Lactate 5 mg 07/18/21 14:57 07/18/21 15:02 Haloperidol Lactate 5 Mg/Ml Sdv IM 07/18/21 14:58 5 mg ONETIME ONE Administration Haloperidol Lactate Confirm 07/18/21 14:58 07/18/21 15:02 Haloperidol Lactate 5 Mg/Ml Sdv Administered 07/18/21 14:59 Not Given Dose 5 mg .ROUTE .STK-MED ONE Haloperidol Lactate 5 mg 07/18/21 16:47 07/18/21 16:52 Haloperidol Lactate 5 Mg/Ml Sdv IM 07/18/21 16:48 5 mg ONETIME ONE Administration Departure - Departure Time of Disposition: 18:01 Disposition: DC/Tfer to Psych Hosp/Unit 65 Condition: Serious Clinical Impression: Agitation Altered mental status Qualifiers: Altered mental status type: unspecified Qualified Code(s): R41.82 - Altered mental status, unspecified - Discharge Information *PRESCRIPTION DRUG MONITORING PROGRAM REVIEWED*: Not Applicable *COPY OF PRESCRIPTION DRUG MONITORING REPORT IN PATIENT FILOMENA: Not Applicable Forms: Interfacility Transfer EMTALA Care Plan Goals: Discussed the patient's history, examination, lab and treatments with Finesse Busby. Dr. Busby accepted the patient for continued evaluation and management as an inpatient at the [facility] in [place]. The patient will be transported by [facility] officer. Sepsis Event Note (ED) - Focused Exam Vital Signs: Vital Signs Temp Pulse Resp BP Pulse Ox 07/18/21 14:42 117/83 07/18/21 13:44 97.2 F 88 20 133/87 97 - My Orders Last 24 Hours: My Active Orders 07/18/21 13:30 Initiate/Renew Violent-Self Destructive Restraints >/=18yo Q4H 07/18/21 13:48 DRUG SCREEN URINE BIORAD [URCHEM] Stat UA RFX CLAUDIA AND CULT IF INDIC [URIN] Urgent 07/18/21 13:59 CULTURE BLOOD [BC] Stat 07/18/21 15:39 Nrsg Assess: Viol-S.Dest Rest [RC] Q1H - Assessment/Plan Last 24 Hours: My Active Orders 07/18/21 13:30 Initiate/Renew Violent-Self Destructive Restraints >/=18yo Q4H 07/18/21 13:48 DRUG SCREEN URINE BIORAD [URCHEM] Stat UA RFX CLAUDIA AND CULT IF INDIC [URIN] Urgent 07/18/21 13:59 CULTURE BLOOD [BC] Stat 07/18/21 15:39 Nrsg Assess: Viol-S.Dest Rest [RC] Q1H
== END 2021-07-18 18:52 ==
LOC: DL.ED 13:38
DX: R41.82 Altered mental status, unspecified (principal); R45.1 Restlessness and agitation; K21.9 Gastro-esophageal reflux disease without esophagitis; Z79.899 Other long term (current) drug therapy
CPT/HCPCS: 36415; 80053; 83605; 84484; 85025; 87040; 93005; 96372; 99285; J1630